=== PATIENT | female | born 1980 | race Caucasian/White ===

== ENCOUNTER 2018-10-07 14:26 | Emergency (ER) | payer OTHER | END 2018-10-07 16:12 | disposition home or self-care (01) | LOC: FTE 14:26 | DX: L73.2 Hidradenitis suppurativa (principal); L02.91 Cutaneous abscess, unspecified | CPT/HCPCS: 99283; Z7502 ==

== ENCOUNTER 2018-11-06 10:20 | Emergency (ER) | payer OTHER | END 2018-11-06 12:53 | disposition home or self-care (01) | LOC: FTE 10:20 | DX: L03.111 Cellulitis of right axilla (principal); L03.112 Cellulitis of left axilla | CPT/HCPCS: 99283; Z7502 ==

== ENCOUNTER 2019-01-27 19:33 | Emergency (ER) | payer OTHER ==
[2019-01-27] MEDS: METOCLOPRAMIDE 10 MG TAB PO (22:06)
[2019-01-27 22:26] LABS: ADD UMIC YES; UR ASCORBIC ACID NEGATIVE (NEGATIVE); UR BACTERIA FEW /HPF (NONE SEEN); UR BILIRUBIN (Dip) NEGATIVE (NEGATIVE); UR BLOOD (Dip) NEGATIVE (NEGATIVE); UR CLARITY SLIGHTLY CLOUDY (CLEAR); UR COLOR YELLOW (YELLOW); UR GLUCOSE (Dip) NEGATIVE (NEGATIVE); UR KETONES (Dip) NEGATIVE (NEGATIVE); UR LEUKOCYTE ESTERASE (Dip) 2+ Leu/ul (NEGATIVE); UR MUCUS MODERATE /HPF (NONE SEEN); UR NITRITE (Dip) NEGATIVE (NEGATIVE); UR RBC 5 /HPF (0-5); UR SQUAMOUS EPITHELIAL CELL FEW /HPF (FEW); UR TOTAL PROTEIN (Dip) NEGATIVE (NEGATIVE); UR UROBILINOGEN (Dip) NEGATIVE (NEGATIVE); UR WBC 7 /HPF (0-5)
== END 2019-01-27 22:47 | disposition home or self-care (01) ==
LOC: FTE 19:33
DX: N30.01 Acute cystitis with hematuria (principal)
CPT/HCPCS: 81001; 81025; 99283